=== PATIENT | female | born 1955 | race Caucasian/White ===

== ENCOUNTER 2022-10-11 08:29 | Day surgery (SDC) | payer MEDICARE, MEDICAID ==
[~2022-10-11] VITALS: Ht 168.9 cm; Wt 69.0 kg
[2022-10-11 08:50] VITALS: BP 130/75
[2022-10-11] MEDS ORDERED: DULO60CA65 PO (08:59)
[2022-10-11] MEDS ORDERED: ATI1T PO (08:59)
[2022-10-11] MEDS ORDERED: LAMO100T PO (08:59)
[2022-10-11] MEDS ORDERED: PRAV20TA4 PO (08:59)
[2022-10-11] MEDS ORDERED: LITH300T3 PO (08:59)
[2022-10-11] MEDS ORDERED: LEVO125T8 PO (08:59)
[2022-10-11 11:10] VITALS: BP 134/77
[2022-10-11 11:25] VITALS: BP 142/78
[2022-10-11 11:40] VITALS: BP 134/79
[2022-10-11 11:55] VITALS: BP 130/72
[2022-10-11 12:25] VITALS: BP 132/78
[2022-10-11 17:03] LABS: GLUCOSE,CSF 66 MG/DL (40-75); TOTAL PROTEIN,CSF 40 MG/DL (30-60)
[2022-10-12 07:16] LABS: IMMUNOGLOBULIN G, QN, SERUM 946 mg/dL (586-1602)
[2022-10-13 11:11] LABS: IMMUNOGLOBULIN G, QN CSF 2.6 mg/dL (0.0-6.7)
[2022-10-13 13:17] LABS: VDRL, CSF Non Reactive (Non Rea:<1:1)
== END 2022-10-11 12:45 | disposition home or self-care (01) ==
LOC: SSTAY O 08:29
PROVIDERS: ATTEND Psychiatry & Neurology Neurology
DX: R90.82 White matter disease, unspecified (principal); G93.9 Disorder of brain, unspecified; F31.9 Bipolar disorder, unspecified; F41.9 Anxiety disorder, unspecified; E78.00 Pure hypercholesterolemia, unspecified; E03.9 Hypothyroidism, unspecified; M19.90 Unspecified osteoarthritis, unspecified site; G43.909 Migraine, unspecified, not intractable, without status migrainosus; Z98.890 Other specified postprocedural states; Z90.710 Acquired absence of both cervix and uterus; Z79.899 Other long term (current) drug therapy
CPT/HCPCS: 36415; 62328; 77003; 82040; 82042; 82784; 83873; 83916; 86592; 87015; 87070; 87102; 87476; 87529; 88108; A4620; A6449